=== PATIENT | female | born 1990 | race American Indian/Alaskan Native ===

== ENCOUNTER 2017-10-28 17:42 | Emergency (ER) | payer OTHER, MEDICAID ==
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
[2017-10-28 20:26] VITALS: BP 155/86
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
[2017-10-28] MEDS ORDERED: TORADOL IM ONE (20:54)
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
== END 2017-10-28 21:44 | disposition home or self-care (01) ==
LOC: ED 17:42
DX: M25.572 Pain in left ankle and joints of left foot (principal); M25.511 Pain in right shoulder; M54.2 Cervicalgia; M54.5 Low back pain; I10 Essential (primary) hypertension; V89.2XXA Person injured in unspecified motor-vehicle accident, traffic, initial encounter; Y93.89 Activity, other specified; Y92.89 Other specified places as the place of occurrence of the external cause; Y99.8 Other external cause status
CPT/HCPCS: 72040; 72100; 73030; 73610; 96372; 99283; J1885

== ENCOUNTER 2020-05-09 09:59 | Emergency (ER) | payer SELFPAY ==
[2020-05-09] MEDS ORDERED: MORPHINE 4 MG/1 ML INJ IV ONE (10:50)
[2020-05-09] MEDS ORDERED: KETOROLAC 30 MG/1 ML INJ IV ONE (10:50)
[2020-05-09] MEDS ORDERED: LIDOCAINE (1%) 10 MG/1 ML VIAL 20 ML MDV INFILTRATI ONE (10:51)
--- NOTE | 2020-05-09 10:54 | Emergency Department Report ---
ED Female HPI - General Chief complaint: Urogenital-Female Stated complaint: VAGINAL CYST Time Seen by Provider: 05/09/20 10:38 Source: patient Mode of arrival: Ambulatory Limitations: No Limitations - History of Present Illness Initial comments: Patient is 29-year-old F [place] female who is presenting with pain in the vulva. States is 10 out of 10 worse with walking and with palpation. She is noticed some swelling over the last 2 days in the left vulva. Patient was attempting to do sits baths which is not effective at this time. She denies vaginal discharge or abnormal vaginal bleeding. - Related Data Previous Rx's Medication Instructions Recorded Last Taken Type Cyclobenzaprine [Flexeril] 5 mg PO TID PRN #30 tablet 10/28/17 Unknown Rx Ketorolac [Toradol] 10 mg PO Q6H PRN #20 tablet 10/28/17 Unknown Rx Clindamycin [Clindamycin CAP] 300 mg PO Q8H #21 cap 05/09/20 Unknown Rx HYDROcodone/APAP 5-325 [[place] 1 each PO Q6HR PRN #14 tablet 05/09/20 Unknown Rx 5/325] Ketorolac [Toradol] 10 mg PO Q6H PRN #12 tablet 05/09/20 Unknown Rx Allergies Allergy/AdvReac Type Severity Reaction Status Date / Time No Known Allergies Allergy Verified 05/09/20 11:05 ED Review of Systems ROS: Stated complaint: VAGINAL CYST Other details as noted in HPI Comment: All other systems reviewed and negative ED Past Medical Hx - Past Medical History Previous Medical History?: Yes Hx Hypertension: Yes Hx CVA: No Hx Heart Attack/AMI: No Hx Congestive Heart Failure: No Hx Diabetes: No Hx Deep Vein Thrombosis: No Hx GERD: No Hx Arthritis: No Hx Headaches / Migraines: No Hx Asthma: No Hx COPD: No Hx Dementia: No Hx HIV: No - Surgical History Past Surgical History?: Yes Hx Coronary Stent: No Hx Open Heart Surgery: No Hx Pacemaker: No Hx Internal Defibrillator: No Hx Cholecystectomy: No Hx Appendectomy: No Hx Breast Surgery: No Additional Surgical History: D&C - Social History Smoking Status: Current Every Day Smoker Substance Use Type: Non Opiate Pain, Other - Medications Home Medications: Home Medications Medication Instructions Recorded Confirmed Last Taken Type Cyclobenzaprine [Flexeril] 5 mg PO TID PRN #30 tablet 10/28/17 Unknown Rx Ketorolac [Toradol] 10 mg PO Q6H PRN #20 tablet 10/28/17 Unknown Rx Clindamycin [Clindamycin CAP] 300 mg PO Q8H #21 cap 05/09/20 Unknown Rx HYDROcodone/APAP 5-325 [[place] 1 each PO Q6HR PRN #14 tablet 05/09/20 Unknown Rx 5/325] Ketorolac [Toradol] 10 mg PO Q6H PRN #12 tablet 05/09/20 Unknown Rx ED Physical Exam - General Limitations: No Limitations General appearance: alert, in distress - Head Head exam: Present: atraumatic, normocephalic - Eye Eye exam: Present: normal appearance - ENT ENT exam: Present: mucous membranes moist - Neck Neck exam: Present: normal inspection - Respiratory Respiratory exam: Absent: respiratory distress - GI/Abdominal GI/Abdominal exam: Present: soft, normal bowel sounds - External exam: Present: swelling (To the left vulva region. Appears to be Bartholin's cyst with fluctuance.) - Extremities Exam Extremities exam: Present: normal inspection - Back Exam Back exam: Present: normal inspection - Neurological Exam Neurological exam: Present: alert, oriented X3 - Psychiatric Psychiatric exam: Present: normal affect, normal mood - Skin Skin exam: Present: warm, dry, intact, normal color. Absent: rash - I & D Genitals Type of Procedure: Complex Site: left batholin cyst Blade Size: 11 I & D Procedure: betadine prep Progress: pt did not tolerate packing, great deal of pus drained ED Medical Decision Making - Medical Decision Making Patient is a 29-year-old F [place]ian female who is presenting with a left-sided Bartholin cyst. I&D was performed. Patient will be discharged home with medication for symptomatic relief and a [employer] NURSERY TRANSPLANTER consult. Critical care attestation.: If time is entered above; I have spent that time in minutes in the direct care of this critically ill patient, excluding procedure time. ED Disposition Clinical Impression: Bartholin's gland abscess Disposition: TO HOME OR SELFCARE Is pt being admited?: No Does the pt Need Aspirin: No Condition: Stable Instructions: Bartholin Cyst (ED), Incision and Drainage (ED) Referrals: SHELTON RAMEY JR, MD [Staff Physician] - 3-5 Days Time of Disposition: :46
== END 2020-05-09 12:19 | disposition home or self-care (01) ==
LOC: ED 09:59
DX: N75.1 Abscess of Bartholin's gland (principal); I10 Essential (primary) hypertension; F17.200 Nicotine dependence, unspecified, uncomplicated; Z79.899 Other long term (current) drug therapy; Z98.890 Other specified postprocedural states
CPT/HCPCS: 56420; 96374; 96375; 99282; J1885; J2270

== ENCOUNTER 2021-03-24 08:23 | Emergency (ER) | payer OTHER ==
[2021-03-24] MEDS ORDERED: IBUPROFEN 800 MG TAB PO ONE (10:22)
[2021-03-24] MEDS ORDERED: CYCLOBENZAPRINE 10 MG TAB PO ONE (10:22)
--- NOTE | 2021-03-24 10:22 | Emergency Department Report ---
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 NO FOCAL NEURO DEF AMBULATORY TO ACC WITH NORMAL VS NO CP OR SOB NO FEVER OR CHILLS NO FALL OR TRAUMA - Related Data Previous Rx's Medication Instructions Recorded Last Taken Type Cyclobenzaprine [Flexeril] 10 mg PO TID PRN #10 tablet 03/24/21 Unknown Rx Ibuprofen [Motrin] 800 mg PO Q8HR PRN #30 tablet 03/24/21 Unknown Rx predniSONE [Deltasone] 20 mg PO DAILY #5 tablet 03/24/21 Unknown Rx Allergies Allergy/AdvReac Type Severity Reaction Status Date / Time No Known Allergies Allergy Verified 05/09/20 11:05 ED Review of Systems ROS: Stated complaint: RT SHOULDE PAIN Other details as noted in HPI Comment: All other systems reviewed and negative ED Past Medical Hx - Past Medical History Previous Medical History?: Yes Hx Hypertension: Yes Hx CVA: No Hx Heart Attack/AMI: No Hx Congestive Heart Failure: No Hx Diabetes: No Hx Deep Vein Thrombosis: No Hx GERD: No Hx Arthritis: No Hx Headaches / Migraines: No Hx Asthma: No Hx COPD: No Hx Dementia: No Hx HIV: No - Surgical History Past Surgical History?: Yes Hx Coronary Stent: No Hx Open Heart Surgery: No Hx Pacemaker: No Hx Internal Defibrillator: No Hx Cholecystectomy: No Hx Appendectomy: No Hx Breast Surgery: No Additional Surgical History: D&C - Family History Family history: no significant - Social History Smoking Status: Current Every Day Smoker Substance Use Type: Non Opiate Pain, Other - Medications Home Medications: Home Medications Medication Instructions Recorded Confirmed Last Taken Type Cyclobenzaprine [Flexeril] 10 mg PO TID PRN #10 tablet 03/24/21 Unknown Rx Ibuprofen [Motrin] 800 mg PO Q8HR PRN #30 tablet 03/24/21 Unknown Rx predniSONE [Deltasone] 20 mg PO DAILY #5 tablet 03/24/21 Unknown Rx ED Physical Exam - General Limitations: No Limitations General appearance: alert, in no apparent distress - Head Head exam: Present: atraumatic, normocephalic - Eye Eye exam: Present: normal appearance - ENT ENT exam: Present: mucous membranes moist - Neck Neck exam: Present: normal inspection - Respiratory Respiratory exam: Present: normal lung sounds bilaterally. Absent: respiratory distress - Cardiovascular Cardiovascular Exam: Present: regular rate, normal rhythm. Absent: systolic murmur, diastolic murmur, rubs, gallop - GI/Abdominal GI/Abdominal exam: Present: soft, normal bowel sounds - Extremities Exam Extremities exam: Present: normal inspection - Back Exam Back exam: Present: normal inspection - Neurological Exam Neurological exam: Present: alert, oriented X3 - Psychiatric Psychiatric exam: Present: normal affect, normal mood - Skin Skin exam: Present: warm, dry, intact, normal color. 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 PT VERBALIZES UNDERSTANDING OF PLAN OF CARE AMBULATORY NON TOXIC NON ILL APPEARING ON EXAM Vital Signs 03/24/21 09:02 Temperature 98.2 F Pulse Rate 88 Respiratory 18 Rate Blood Pressure 157/83 O2 Sat by Pulse 99 Oximetry - Differential Diagnosis MSK PAIN Critical care attestation.: If time is entered above; I have spent that time in minutes in the direct care of this critically ill patient, excluding procedure time. ED Disposition Clinical Impression: Muscle spasm Disposition: DC-01 TO HOME OR SELFCARE Is pt being admited?: No Does the pt Need Aspirin: No Condition: Stable Instructions: Muscle Cramps and Spasms, [id number] Additional Instructions: MEDS ORDERED TODAY FOLLOW UP WITH PCP REFERRAL BELOW STRETCHING AND ACTIVITY WILL HELP LOOSEN THE MUSCLE STAY WELL HYDRATED USE PROPER BODY MECHANICS WHEN LIFTING Referrals: LEYDI KNIGHT MD [Staff Physician] - 3-5 Days Forms: Work/School Release Form(ED) Time of Disposition: 10:21
[2021-03-24] MEDS ORDERED: predniSONE 20 MG TAB PO NR (11:00)
[2021-03-24 11:02] VITALS: BP 134/89
== END 2021-03-24 11:03 | disposition home or self-care (01) ==
LOC: ED 08:23
DX: M62.838 Other muscle spasm (principal); I10 Essential (primary) hypertension; F17.200 Nicotine dependence, unspecified, uncomplicated; Z79.899 Other long term (current) drug therapy
CPT/HCPCS: 99282; J7512